=== PATIENT | female | born 1985 | race Caucasian/White ===

== ENCOUNTER 2017-04-18 09:20 | Outpatient (CLI) | payer MEDICAID ==
[2017-04-18] MEDS ORDERED: RINGERS SOLUTION,LACTATED 1,000 ML IV PRN (09:29)
[2017-04-18 09:46] LABS: APPEARANCE,URINE CLOUDY; BILIRUBIN,URINE NEGATIVE (NEGATIVE); GLUCOSE, URINE NEGATIVE (NEGATIVE); KETONES,URINE NEGATIVE (NEGATIVE); LEUKOCYTE ESTERASE,URINE MODERATE (NEGATIVE); NITRITE,URINE NEGATIVE (NEGATIVE); PROTEIN,URINE 30 mg/dL (NEGATIVE)
[2017-04-18 10:06] LABS: URINE BARBITURATES SCREEN NEGATIVE; URINE METHADONE SCREEN NEGATIVE; URINE OPIATES LOW NEGATIVE; URINE PHENCYCLIDINE SCREEN NEGATIVE
--- NOTE | 2017-04-18 10:31 | Non Stress Test Report ---
Non Stress Test Datetime Report Generated by CPN: 04/18/2017 10:31 DEMOGRAPHIC EGA NST: 37.6 INDICATION Indication for Study: Other Indication for Study (NST) Other: IUP 37.6, elevated FHR in office MONITORING Monitor Explained: Monitor Explained; Test Explained; Patient Verbalized Understanding Time on Monitor: 04/18/2017 09:56 Time off Monitor: 04/18/2017 10:19 NST Duration: 23 NST INTERVENTIONS NST Interventions: PO Hydration; IV Fluids Physician Notified NST: Lilliana Andrade CNM BABY A: [id number] BABY A Movement : Present Contraction Frequency : x1 FHR Baseline : 150 Accelerations : 15X15 Decelerations : None Variability : Moderate 6-25bpm NST Review: Meets Criteria for Reactive NST NST Review and Verified By : MARIAMA Dinero Results: Reactive NST REPORT Report Trigger: Send Report
== END 2017-04-18 10:22 | disposition home or self-care (01) ==
LOC: LC 09:20
PROVIDERS: ATTEND Obstetrics & Gynecology
PROC: 4A1HXCZ Monitoring of Products of Conception, Cardiac Rate, External Approach (ICD-10-PCS; principal; 2017-04-18)
DX: O76 Abnormality in fetal heart rate and rhythm complicating labor and delivery (principal); Z3A.37 37 weeks gestation of pregnancy
CPT/HCPCS: 59025; 80307; 81005

== ENCOUNTER 2017-05-01 20:02 | Inpatient (IN) | payer MEDICAID ==
[2017-05-01 20:31] LABS: APPEARANCE,URINE SLIGHTLY-CLOUDY; BILIRUBIN,URINE NEGATIVE (NEGATIVE); COLOR,URINE YELLOW; GLUCOSE, URINE NEGATIVE (NEGATIVE); KETONES,URINE NEGATIVE (NEGATIVE); LEUKOCYTE ESTERASE,URINE TRACE (NEGATIVE); NITRITE,URINE NEGATIVE (NEGATIVE); PROTEIN,URINE 30 mg/dL (NEGATIVE); URINE SPECIFIC GRAVITY 1.013; UROBILINOGEN,URINE NEGATIVE mg/dL (<2.0)
[2017-05-01 20:49] LABS: URINE AMPHETAMINES SCREEN NEGATIVE; URINE BARBITURATES SCREEN NEGATIVE; URINE BENZODIAZEPINES SCREEN NEGATIVE; URINE COCAINE SCREEN NEGATIVE; URINE MARIJUANA (THC) SCREEN NEGATIVE; URINE METHADONE SCREEN NEGATIVE; URINE PHENCYCLIDINE SCREEN NEGATIVE
[2017-05-01] MEDS ORDERED: OXYTOCIN/NORMAL SALINE 20 UNIT/1,000 ML RTUINJ ONE (21:38)
[2017-05-01] MEDS ORDERED: MISOPROSTOL 0.2 MG TABLET ONE (21:38)
[2017-05-01] MEDS ORDERED: LIDOCAINE 1% INJ-PF (10 MG/ML) 30 ML SDV ONE (21:38)
[2017-05-01] MEDS ORDERED: RINGERS SOLUTION,LACTATED 1,000 ML IV PRN (21:41)
[2017-05-01] MEDS ORDERED: FENTANYL/BUPIVACAINE/NS/PF 200 MCG/100 ML RTUINJ EPI PRN (21:42)
[2017-05-01] MEDS ORDERED: EPHEDRINE SULFATE INJ 50 MG/1 ML AMPULE IV PRN (21:42)
[2017-05-01] MEDS ORDERED: DIPHENHYDRAMINE HCL 50 MG/ML VIAL IV PRN (21:42)
[2017-05-01] MEDS ORDERED: EPHEDRINE SULFATE INJ 50 MG/1 ML AMPULE IV ONE (21:42)
[2017-05-01] MEDS ORDERED: BENZOIN/ALOE VERA/STORAX/TOLU TINCTURE 60 ML TP PRN (21:42)
[2017-05-01] MEDS ORDERED: BUPIVACAINE HCL 0.25 % INJ/PF (2.5 MG/1 ML) 30 ML VIAL INFIL ONE (21:42)
[2017-05-01 21:57] LABS: HEMATOCRIT 32.5 % (36.0-47.0); HEMOGLOBIN 11.1 g/dL (12.0-15.5); MEAN CORPUSCULAR HEMOGLOBIN 31.1 pg (27.0-33.4); MEAN CORPUSCULAR HGB CONC 34.2 g/dL (32.0-36.0); MEAN CORPUSCULAR VOLUME 91 fl (80-97); PLATELET COUNT 246 10^3/uL (150-450); RED BLOOD COUNT 3.57 10^6/uL (3.72-5.28); WHITE BLOOD COUNT 23.2 10^3/uL (4.0-10.5)
[2017-05-01 22:13] LABS: ABSOLUTE LYMPHOCYTES# (MANUAL) 4.6 10^3/uL (0.5-4.7); ABSOLUTE MONOCYTES # (MANUAL) 0.2 10^3/uL (0.1-1.4); ABSOLUTE NEUTROPHILS# (MANUAL) 17.4 10^3/uL (1.7-8.2); BAND NEUTROPHILS % (MANUAL) 2 % (3-5); BASOPHILS % (MANUAL) 0 % (0-2); EOSINOPHILS % (MANUAL) 4 % (0-6); LYMPHOCYTES % (MANUAL) 16 % (13-45); METAMYELOCYTES % (MANUAL) 2 % (0); MONOCYTES % (MANUAL) 1 % (3-13); SEGMENTED NEUTROPHILS % (MAN) 71 % (42-78); TOTAL CELLS COUNTED 100
[2017-05-01 22:14] LABS: PLATELET COMMENT ADEQUATE; RBC MORPHOLOGY COMMENT NORMO-CYTIC/CHROMIC
[2017-05-01] MEDS ORDERED: MEASLES,MUMPS&RUBELLA VACC/PF 0.5 ML VIAL SUBCUT PRN (22:57)
[2017-05-01] MEDS ORDERED: ACETAMINOPHEN WITH CODEINE #3 TABLET PO PRN ×2 (22:57)
[2017-05-01] MEDS ORDERED: DIPHENHYDRAMINE HCL 25 MG CAPSULE PO PRN (22:57)
[2017-05-01] MEDS ORDERED: PROMETHAZINE HCL 25 MG SUPP.RECT PR PRN (22:57)
[2017-05-01] MEDS ORDERED: GLYCERIN/WITCH HAZEL LEAF 1 EACH MED..PAD TP PRN (22:57)
[2017-05-01] MEDS ORDERED: NA PHOS,M-B/NA PHOS,DI-BA (ADULT) 133 ML ENEMA PR PRN (22:57)
[2017-05-01] MEDS ORDERED: PROMETHAZINE HCL INJ 25 MG/1 ML VIAL IV PRN (22:57)
[2017-05-01] MEDS ORDERED: OXYTOCIN/NORMAL SALINE 20 UNIT/1,000 ML RTUINJ IV PRN (22:57)
[2017-05-01] MEDS ORDERED: DIBUCAINE 1% OINTMENT 28 GM TP PRN (22:57)
[2017-05-01] MEDS ORDERED: ACETAMINOPHEN 650 MG SUPP.RECT PR PRN (22:57)
[2017-05-01] MEDS ORDERED: MAGNESIUM HYDROXIDE SUSP 30 ML UDCUP PO PRN (22:57)
[2017-05-01] MEDS ORDERED: PSEUDOEPHEDRINE HCL 30 MG TABLET PO PRN (22:57)
[2017-05-01] MEDS ORDERED: BENZOCAINE/MENTHOL AEROSOL SPRAY 56 ML TOP PRN (22:57)
[2017-05-01] MEDS ORDERED: DIPH/PERTUSS(ACELL)/TETANUS VAC/PF 0.5 ML SYR (>=10YO) IM PRN (22:57)
[2017-05-01] MEDS ORDERED: PROMETHAZINE HCL 25 MG TABLET PO PRN (22:57)
[2017-05-01] MEDS ORDERED: ZOLPIDEM TARTRATE 5 MG TABLET PO PRN (22:57)
[2017-05-01] MEDS ORDERED: IBUPROFEN 800 MG TABLET ONE (23:36)
--- NOTE | 2017-05-01 23:48 | Delivery Summary ---
Del Sum A-C Datetime Report Generated by CPN: 05/01/2017 23:47 DELIVERY PERSONNEL DELIVERY PERSONNEL: [id number] Delivery Doctor:: Winnie Perry MD Labor and Delivery Nurse:: Lorraine Gibbons RNsplitter hand Nurse:: Lisa Lowery RN Aligning Inspector/TEXTILE MACHINERY SALES REPRESENTATIVE: Elaine Tan, ST MATERNAL INFORMATION Delivery Anesthesia: None Medications After Delivery: Pitocin Drip 20 Units/1000ml NSS Estimated Blood Loss (ml): 200 Maternal Complications: Precipitous Labor (<3hrs) LABOR SUMMARY EDC: 05/03/2017 00:00 No. Babies in Womb: 1 Attempted: No Labor Anesthesia: None LABOR INFORMATION Reason for Induction: Not Applicable Onset of Labor: 05/01/2017 21:32 Complete Dilatation: 05/01/2017 21:51 Oxytocin: N/A Group B Beta Strep: negative Antibiotics # of Doses: 0 Steroids Given: None Reason Steroids Not Administered: Not Applicable MEMBRANES Membranes Rupture Method: Spontaneous Rupture of Membranes: 05/01/2017 21:51 Length of Rupture (hr): 0.75 Amniotic Fluid Color: Clear Amniotic Fluid Amount: Moderate Amniotic Fluid Odor: Normal STAGES OF LABOR Stage 1 hr: 0 Stage 1 min: 19 Stage 2 hr: 0 Stage 2 min: 45 Stage 3 hr: 0 Stage 3 min: 6 Total Time in Labor hr: 1 Total Time in Labor min: 10 VAGINAL DELIVERY Episiotomy: None Laceration #1: Perineal Laceration Extension #1: First Degree Laceration Repair: No Sponge Count Correct: N/A Sharps Count Correct: N/A CSECTION DELIVERY Primary Indication: N/A Secondary Indication: N/A CSection Incidence: N/A Labor: N/A Elective: N/A CSection Incision: N/A BABY A INFORMATION Delivery Date/Time: 05/01/2017 22:36 Method of Delivery: Vaginal Born in Route : No : N/A Forceps: N/A Vacuum Extraction: N/A Shoulder Dystocia : No PRESENTATION/POSITION BABY A Presentation: Cephalic Cephalic Presentation: Vertex Vertex Position: Occipital Posterior Breech Presentation: N/A PLACENTA INFORMATION BABY A Placenta Delivery Time : 05/01/2017 22:42 Placenta Method of Delivery: Spontaneous Placenta Status: Delivered SCORES BABY A Heart Rate 1 min: >100 bpm Resp Effort 1 min: Good Cry Reflex Irritability 1 min: Cough or Sneeze or Pulls Away Muscle Tone 1 min: Active Motion Color 1 min: Body [place], Extremities Blue Resuscitation Effort 1 min: Tactile Stimulation SCORE 1 MIN: 9 Heart Rate 5 min: >100 bpm Resp Effort 5 min: Good Cry Reflex Irritability 5 min: Cough or Sneeze or Pulls Away Muscle Tone 5 min: Active Motion Color 5 min: Body [place], Extremities Blue Resuscitation Effort 5 min: Tactile Stimulation SCORE 5 MIN: 9 INFORMATION BABY A Gestational Age at Delivery: 39.5 Gestational Status: Full Term- 39- 40.6 Weeks Outcome : Liveborn Condition : Stable Sex: Female IDENTIFICATION BABY A Infant Verification Date/Time: 05/01/2017 22:58 ID Band Number: [id number] Mother's Name Verified: Yes Infant RN Verifying Infant: SCaroline Live, RN _ C. Beverley, RN WEIGHT/LENGTH BABY A Infant Birthweight (gm): 3590 Infant Weight (lb): 7 Weight (oz): 15 Length (in): 19.50 Length (cm): 49.53 CORD INFORMATION BABY A No. Cord Vessels: 3 Nuchal Cord : N/A Cord Blood Taken: Yes-For Storage (Mom's Blood type +) Suction: Mouth; Nose BABY B INFORMATION : N/A SIGNATURES Signature: with User ID: [email or web address]
--- NOTE | 2017-05-02 00:44 | Admission Physical ---
Datetime Report Generated by CPN: 05/02/2017 00:44 CURRENT ADMISSION Chief Complaint: Uterine Contractions; Vaginal Bleeding Indication for Induction: Not Applicable Indication for Induction: Term, Intrauterine ; Active Labor Admit Plan: Admit to Unit; Initiate Labor Protocol ALLERGIES Medication Allergies: No Medication Allergies: No Known Allergies (02/02/2016) Latex: No Latex Allergies OBSTETRICAL HISTORY EDC: 05/03/2017 00:00 : 5 Para: 4 Term: 4 : 0 SAB: 0 IAB: 0 Ectopic: 0 Livin Cesareans: 0 VBACs: 0 Multiple Births: 0 Gestational Diabetes: No Rh Sensitization: No Incompetent Cervix: No JULIANA: No Infertility: No ART Treatment: No Uterine Anomaly: No IUGR: No Hx Previous C/S: No Macrosomia: No Hx Loss/Stillborn: No PIH: No Hx : No Placenta Previa/Abruption: No Depression/PP Depression: No PTL/PROM: No Post Hemorrhage: No Current Procedures: Ultrasound; NST Obstetrical History Comments: G1: 2005 39 weeks G2: 2007 38 weeks G3: 2010 40 weeks G4: 2015 40 weeks G5: 2016 SEE RECORDS Alcohol: No Marijuana : No Cocaine: No Other Illicit Drugs: No Cigarettes: Current Everyday Smoker. 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 Heart Disease: No Hosp/Surgery: Yes Autoimmune Disorder: No Anesthetic Complications: No Kidney Disease: No Abnormal Pap Smear: No Neuro/Epilepsy: No Psychiatric Disorders: No Other Medical Diseases: No Hepatitis/Liver Disease: No Significant Family History: No Varicosities/Phlebitis: No Trauma/Violence : No Thyroid Dysfunction: No Medical History Comments: leep pulmonary issues as a child INFECTIOUS HISTORY Gonorrhea: No Genital Herpes: No Chlamydia: No Tuberculosis: No Syphilis: No Hepatitis: No HIV/AIDS Exposure: No Rash or Viral Illness: No HPV: No PHYSICAL EXAM General: Normal HEENT: Normal Neurologic: Normal Thyroid: Normal Heart: Normal Lungs: Normal Breast: Normal Back: Normal Abdomen: Normal Genitourinary Exam: Normal Extremities: Normal DTRs: Normal Pelvic Type: Adequate Vital Signs: Reviewed; Within Normal Limits VAGINAL EXAM Dilatation: 5 Effacement: 80 Station: -1 MEMBRANES Pooling: Negative Membranes: Bulging Amniotic Fluid Color: Clear FETUS A EGA: 39.5 Monitoring: External US FHR- Baseline: 160 Variability: Moderate 6-25bpm Accelerations: 15X15 Decelerations: None FHR Category: Category I Estimated Weight (gm): 3700 Presentation: Vertex Presentation- Other: OP PLANS FOR LABOR AND DELIVERY Labor and Delivery: None Pain Management: Epidural Feeding Preference: Formula Benefit of Breast Feed Discussed: Yes Circumcision: N/A INFORMED CONSENT Signature: with User ID: [email or web address]
[2017-05-02] MEDS: IBUPROFEN 800 MG TABLET PO SCH ×3 (05:03→21:14)
[2017-05-02 07:43] LABS: HEMATOCRIT 28.4 % (36.0-47.0); HEMOGLOBIN 9.8 g/dL (12.0-15.5); MEAN CORPUSCULAR HEMOGLOBIN 31.5 pg (27.0-33.4); MEAN CORPUSCULAR HGB CONC 34.6 g/dL (32.0-36.0); MEAN CORPUSCULAR VOLUME 91 fl (80-97); PLATELET COUNT 220 10^3/uL (150-450); RED BLOOD COUNT 3.12 10^6/uL (3.72-5.28); WHITE BLOOD COUNT 20.1 10^3/uL (4.0-10.5)
--- NOTE | 2017-05-02 09:45 | PDOC PROGRESS REPORT ---
Subjective-OB Subjective: Post Delivery Day: 31 year old. Denies any needs at this time Doing well, no c/o, fob in room, baby in crib, eating well, voiding, ambulating Physical Exam (OB) Vital Signs: Temp Pulse Resp BP Pulse Ox 98.5 F 48 L 16 103/56 L 98 05/02/17 07:51 05/02/17 07:51 05/02/17 07:51 05/02/17 07:51 05/02/17 07:51 Intake & Output 05/01/17 05/02/17 05/03/17 06:59 06:59 06:59 Weight 74.15 kg - Lochia Lochia Amount: Small 10-25 ml Lochia Color: Rubra/Red - Abdomen Description: Soft, Round Hernia Present: No Fundal Description: Firm, Midline Fundal Height: u/u - u/2 Objective-Diagnostic Laboratory: 05/02/17 07:32 05/01/17 05/01/17 05/01/17 20:13 21:44 21:44 WBC 23.2 H RBC 3.57 L Hgb 11.1 L Hct 32.5 L MCV 91 MCH 31.1 MCHC 34.2 RDW 14.0 Plt Count 246 Seg Neutrophils % Not Reportable Lymphocytes % Not Reportable Monocytes % Not Reportable Eosinophils % Not Reportable Basophils % Not Reportable Absolute Neutrophils Not Reportable Absolute Lymphocytes Not Reportable Absolute Monocytes Not Reportable Absolute Eosinophils Not Reportable Absolute Basophils Not Reportable Urine Color YELLOW Urine Appearance SLIGHTLY-CLOUDY Urine pH 7.0 Ur Specific [place] 1.013 Urine Protein 30 H Urine Glucose (UA) NEGATIVE Urine Ketones NEGATIVE Urine Blood SMALL H Urine Nitrite NEGATIVE Ur Leukocyte Esterase TRACE H Blood Type A POSITIVE Antibody Screen NEGATIVE 05/02/17 07:32 WBC 20.1 H RBC 3.12 L Hgb 9.8 L Hct 28.4 L MCV 91 MCH 31.5 MCHC 34.6 RDW 14.0 Plt Count 220 Seg Neutrophils % Lymphocytes % Monocytes % Eosinophils % Basophils % Absolute Neutrophils Absolute Lymphocytes Absolute Monocytes Absolute Eosinophils Absolute Basophils Urine Color Urine Appearance Urine pH Ur Specific [place] Urine Protein Urine Glucose (UA) Urine Ketones Urine Blood Urine Nitrite Ur Leukocyte Esterase Blood Type Antibody Screen Assessment and Plan(PN) - Assessment and Plan (1) Anemia Qualifiers: Anemia type: iron deficiency Is this a current diagnosis for this admission?: Yes (2) Vacuum extractor delivery, delivered Is this a current diagnosis for this admission?: Yes - Time Spent with Patient Time with patient: Less than 15 minutes Medications reviewed and adjusted accordingly: Yes - Disposition Anticipated Discharge: Home Within: within 24 hours
[2017-05-02] MEDS: SENNOSIDES/DOCUSATE 8.6-50 MG 1 EACH TABLET PO SCH (11:09)
[2017-05-02] MEDS: FAMOTIDINE 20 MG TABLET PO SCH ×2 (11:09→21:15)
[2017-05-02] MEDS: DOCUSATE SODIUM 100 MG CAPSULE PO SCH ×2 (11:10→17:43)
[2017-05-02] MEDS: PRENATAL VITAMIN W DHA CAPSULE PO SCH (11:10)
[2017-05-02] MEDS: FERROUS SULFATE 325 MG TABLET PO SCH ×2 (11:10→17:44)
[2017-05-03] MEDS: IBUPROFEN 800 MG TABLET PO SCH (05:02)
[2017-05-03 08:48] VITALS: BP 114/67
[2017-05-03] MEDS: SENNOSIDES/DOCUSATE 8.6-50 MG 1 EACH TABLET PO SCH (09:02)
[2017-05-03] MEDS: FAMOTIDINE 20 MG TABLET PO SCH (09:03)
[2017-05-03] MEDS: PRENATAL VITAMIN W DHA CAPSULE PO SCH (09:03)
[2017-05-03] MEDS: DOCUSATE SODIUM 100 MG CAPSULE PO SCH (09:03)
[2017-05-03] MEDS: FERROUS SULFATE 325 MG TABLET PO SCH (09:03)
--- NOTE | 2017-05-03 11:33 | PDOC DISCHARGE SUMMARY ---
Final Diagnosis Discharge Date: 05/03/17 - Final Diagnosis (1) Vaginal delivery Is this a current diagnosis for this admission?: Yes (2) Tobacco smoking affecting Is this a current diagnosis for this admission?: Yes (3) Acute blood loss anemia Is this a current diagnosis for this admission?: Yes Discharge Data - Discharge Medication Home Medications: No122/Iron/Folic Acid [ Multi Tablet] 1 tab PO DAILY 12/16/15 Reason(s) for Admission: Onset of Labor Procedures: NST, Ultrasound Intrapartum Procedure(s): Spontaneous Vaginal Delivery Complication(s): Laceration-Perineal Laceration-Degree: 1st - Diagnosis Test Laboratory: Temp Pulse Resp BP Pulse Ox 98.0 F 72 17 114/67 100 05/03/17 08:04 05/03/17 08:04 05/03/17 08:04 05/03/17 08:04 05/03/17 08:04 05/01/17 05/01/17 05/02/17 20:13 21:44 07:32 RBC 3.57 L 3.12 L Hgb 11.1 L 9.8 L Hct 32.5 L 28.4 L Urine Opiates Screen NEGATIVE - Discharge information/Instructions Discharge Activity: Activity As Tolerated, Balance Activity w/Rest, No Lifting Over 10 Pounds, Pelvic Rest, No tub bath Discharge Diet: Regular Disposition: HOME, SELF-CARE Follow up with: [facility] in: 4, Weeks
[2017-05-03 12:30] LABS: HEMATOCRIT 30.8 % (36.0-47.0); HEMOGLOBIN 10.5 g/dL (12.0-15.5); MEAN CORPUSCULAR HEMOGLOBIN 31.3 pg (27.0-33.4); MEAN CORPUSCULAR VOLUME 92 fl (80-97); PLATELET COUNT 277 10^3/uL (150-450); RED BLOOD COUNT 3.34 10^6/uL (3.72-5.28); RED CELL DISTRIBUTION WIDTH 14.2 % (11.5-14.0); WHITE BLOOD COUNT 17.5 10^3/uL (4.0-10.5)
== END 2017-05-03 13:33 | disposition home or self-care (01) | DRG 812 ==
LOC: LC 20:02 → LR 21:39 → 2N 05-02 00:38
PROVIDERS: ADMIT Obstetrics & Gynecology; ATTEND Obstetrics & Gynecology
PROC: 10E0XZZ Delivery of Products of Conception, External Approach (ICD-10-PCS; principal; 2017-05-01)
PROC: 0HQ9XZZ Repair Perineum Skin, External Approach (ICD-10-PCS; 2017-05-01)
PROC: 4A1HXCZ Monitoring of Products of Conception, Cardiac Rate, External Approach (ICD-10-PCS; 2017-05-01)
DX: D62 Acute posthemorrhagic anemia (principal); O99.334 Smoking (tobacco) complicating childbirth; F17.210 Nicotine dependence, cigarettes, uncomplicated; O99.02 Anemia complicating childbirth; O70.0 First degree perineal laceration during delivery; O99.52 Diseases of the respiratory system complicating childbirth; J45.909 Unspecified asthma, uncomplicated; O62.3 Precipitate labor; Z28.21 Immunization not carried out because of patient refusal; Z3A.39 39 weeks gestation of pregnancy; Z37.0 Single live birth
CPT/HCPCS: 36415; 80307; 81005; 85025; 85027; 86592; 86850; 86900; 86901; J2590; J3490

== ENCOUNTER 2017-09-06 10:24 | Emergency (ER) | payer MEDICAID ==
[2017-09-06] MEDS ORDERED: IBUPROFEN 800 MG TABLET PO ONE (11:01)
--- NOTE | 2017-09-06 11:05 | ER Document Report ---
ED Hand/Wrist Injury - General Chief Complaint: Wrist Pain Stated Complaint: WRIST PAIN Time Seen by Provider: 09/06/17 10:43 Mode of Arrival: Ambulatory Information source: Patient Notes: 31-year-old female presents to ED for complaint of pain in her right wrist for about a week. She states that the pain radiates up to her right elbow. She states that it is hard for her to put any weight on her hand or to lift anything with a hand due to the pain. TRAVEL OUTSIDE OF THE [place] IN LAST 30 DAYS: No - HPI Injury to: Wrist Onset: Last week Timing: Still present Quality of pain: Achy, Sharp Severity: Mild Pain Level: 2 - Related Data Allergies/Adverse Reactions: No Known Allergies Allergy (Verified 09/06/17 10:29) Past Medical History - General Information source: Patient - Social History Smoking Status: Current Every Day Smoker Cigarette use (# per day): Yes - 6 or 7 cigarettes a day Chew tobacco use (# tins/day): No Smoking Education Provided: Yes - 4 minutes Frequency of alcohol use: None Drug Abuse: None Occupation: [employer] Lives with: Alone - She lives alone with her children Family History: DM, Malignancy, Thyroid Disfunction. denies: CAD - States coronary aneurysm, COPD, CVA, Hyperlipidemia, Hypertension Patient has suicidal ideation: No Patient has homicidal ideation: No - Past Medical History Cardiac Medical History: Reports: None Pulmonary Medical History: Reports: None EENT Medical History: Reports: None Neurological Medical History: Reports: None Endocrine Medical History: Reports: None Renal/ Medical History: Reports: None Malignancy Medical History: Reports: None GI Medical History: Reports: None Musculoskeltal Medical History: Reports Hx Musculoskeletal Trauma Skin Medical History: Reports None Psychiatric Medical History: Reports: None Traumatic Medical History: Reports: Hx Fractures Infectious Medical History: Reports: None Past Surgical History: Reports: Hx Breast Surgery - cyst removal Lt breast - Immunizations Hx Diphtheria, Pertussis, Tetanus Vaccination: Yes Review of Systems - Review of Systems Constitutional: No symptoms reported EENT: No symptoms reported Cardiovascular: No symptoms reported Respiratory: No symptoms reported Gastrointestinal: No symptoms reported Genitourinary: No symptoms reported Female Genitourinary: No symptoms reported Musculoskeletal: Other - Pain right wrist radiating to elbow Skin: No symptoms reported Hematologic/Lymphatic: No symptoms reported Neurological/Psychological: No symptoms reported -: Yes All other systems reviewed and negative Physical Exam - Vital signs Vitals: Temp Pulse Resp BP Pulse Ox 98.2 F 71 15 100/55 L 97 09/06/17 10:31 09/06/17 10:31 09/06/17 10:31 09/06/17 10:31 09/06/17 10:31 Interpretation: Normal - General General appearance: Appears well, Alert - HEENT Head: Normocephalic, Atraumatic Eyes: Normal Pupils: PERRL - Respiratory Respiratory status: No respiratory distress Chest status: Nontender Breath sounds: Normal Chest palpation: Normal - Cardiovascular Rhythm: Regular Heart sounds: Normal auscultation Murmur: No - Abdominal Inspection: Normal Distension: No distension Bowel sounds: Normal Tenderness: Nontender Organomegaly: No organomegaly - Back Back: Normal, Nontender - Extremities General upper extremity: Normal color, Normal temperature General lower extremity: Normal inspection, Nontender, Normal color, Normal ROM , Normal temperature, Normal weight bearing. No: Varun's sign Wrist: Tender, Limited ROM. No: Abrasion, Axial load of thumb pain, Deformity, Dislocation, Ecchymosis - Due to pain, Instability, Laceration, Navicular tenderness - Neurological Neuro grossly intact: Yes Cognition: Normal Orientation: AAOx4 [place] Coma Scale Eye Opening: Spontaneous [place] Coma Scale Verbal: Oriented [place] Coma Scale Motor: Obeys Commands [place] Coma Scale Total: 15 Speech: Normal Motor strength normal: LUE, RUE, LLE, RLE Sensory: Normal - Psychological Associated symptoms: Normal affect, Normal mood - Skin Skin Temperature: Warm Skin Moisture: Dry Skin Color: Normal Course - Re-evaluation Re-evalutation: 09/06/17 11:04 Patient does not remember a definite injury but she does have pain with any movement of the wrist that radiates up to her arm and elbow. She is able to have faint full range of motion of the hand as long as you hold her wrist still. If you wrist does not he will still she is not able to make a fist. Will get a x-ray of the wrist if this is negative apply cock-up splint and have follow-up with orthopedics. Patient was treated with ibuprofen in the emergency room. 09/06/17 11:41 Joint effusion noted at the wrist no other changes. Patient has been treated with ibuprofen and a cock-up splint. Patient has been instructed to elevate and ice the wrist and to follow-up with orthopedics. - Vital Signs Vital signs: Temp Pulse Resp BP Pulse Ox 98.7 F 82 14 100/55 L 100 09/06/17 11:45 09/06/17 11:45 09/06/17 11:45 09/06/17 10:31 09/06/17 11:45 - Diagnostic Test Radiology reviewed: Image reviewed, Reports reviewed Procedures - Immobilization Right Wrist Time completed: 11:40 Immobilizer type: Cock-up Performed by: MARIAMA Post-Proc Neuro Vasc Exam: Normal Alignment checked and good: Yes Discharge - Discharge Clinical Impression: Right wrist pain Condition: Stable Disposition: HOME, SELF-CARE Additional Instructions: You will treated today for right wrist pain that is gradually developed over the last week and become worse today. Your x-ray is negative for any breaks or dislocations. You have been treated with ibuprofen in the emergency room and instructed on use of a cock-up splint to help with reduce her pain in your wrist. You have been instructed to follow-up with orthopedics. Please call them today to schedule a follow-up appointment. SPLINT PRECAUTIONS: A splint has been placed. This will protect the area while healing begins. Your problem does NOT normally require a cast. It MUST, however, be held still! Keep the splint on ALL THE TIME until instructed to remove it by the doctor. As you begin to use the area, be careful. You shouldn't do anything which causes discomfort -- you may disturb the injury even with the splint in place. After the initial period of rest and elevation, if splint does not prevent pain when you move, come back. You may require placement of a different splint , or a cast. If there is unexpected severe pain, or numbness, discoloration, or swelling beyond the splint, you should return at once. If you feel that the splint has broken or become loose, come back. ICE & ELEVATION: Apply ice packs frequently against the painful area. Many different schedules are recommended, such as "20 minutes on, 20 minutes off" or "one hour ice, two hours rest." If you need to work, you may need to go longer between ice treatments. You should plan to have the area ice packed AT LEAST one- fourth of the time. The ice should be applied over the wrap, tape, or splint, or over a layer of cloth -- not directly against the skin. Some ice bags have a built-in cloth and can be put directly on the skin. Your injured part should be elevated as much as possible over the next 48 hours. Try to keep the injury above the level of the heart. Avoid use of the injured area. Elevation and rest will decrease the swelling. USE OF [id number] IBUPROFEN: Ibuprofen (Advil, Nuprin, Medipren, Motrin IB) is a medication for fever and pain control. In addition, it has anti- inflammatory effects which may be beneficial, especially in the treatment of injuries. It's best to take ibuprofen with food. Persons with ulcer disease or allergy to aspirin should notify their physician of this before taking ibuprofen. Ibuprofen can be given every four to six hours, for a total of four doses daily. Age Pain or fever dose Antiinflammatory dose 6-8 yr 200 mg (1 tab) 200 mg (1 tab) 9-11 yr 200 mg (1 tab) 200-400 mg (1-2 tab) 11-14 yr 200-400 mg (1-2 tab) 400 mg (2 tab) 15-adult 400 mg (2 tab) 600 mg (3 tab) FOLLOW-UP CARE: If you have been referred to a physician for follow-up care, call the physician s office for an appointment as you were instructed or within the next two days. If you experience worsening or a significant change in your symptoms, notify the physician immediately or return to the Emergency Department at any time for re-evaluation. Forms: Smoking Cessation Education, Return to Work Referrals: MANJIT DAVALOS MD [Primary Care Provider] - Follow up as needed
--- NOTE | 2017-09-06 11:30 | RADIOLOGY REPORT (SQ) ---
EXAM DESCRIPTION: WRIST RIGHT 3 VIEWS COMPLETED DATE/TIME: 09/06/2017 11:18 am REASON FOR STUDY: pain with movement COMPARISON: None. NUMBER OF VIEWS: Three views. TECHNIQUE: AP, lateral, and oblique radiographic images acquired of the right wrist. LIMITATIONS: None. FINDINGS: MINERALIZATION: Normal. BONES: No acute fracture or dislocation. No worrisome bone lesions. Normal alignment. SOFT TISSUES: There is a wrist joint effusion with fluid bowing dorsally on the lateral view. No rad iopaque foreign body. No soft tissue gas. OTHER: No other significant finding. IMPRESSION: No acute fracture or malalignment. Wrist joint effusion TECHNICAL DOCUMENTATION: JOB ID: [id number] [employer] All Rights Reserved Reading location - IP/workstation name: [email or web address]
== END 2017-09-06 11:55 | disposition home or self-care (01) ==
LOC: ER 10:24
DX: M25.531 Pain in right wrist (principal); M25.521 Pain in right elbow; F17.210 Nicotine dependence, cigarettes, uncomplicated
CPT/HCPCS: 99283; 73110; L3908; J3490

== ENCOUNTER 2020-01-30 14:27 | Outpatient (CLI) | payer MEDICAID ==
[2020-01-30 15:34] LABS: APPEARANCE,URINE SLIGHTLY-CLOUDY; BILIRUBIN,URINE NEGATIVE (NEGATIVE); COLOR,URINE YELLOW; GLUCOSE, URINE NEGATIVE (NEGATIVE); KETONES,URINE NEGATIVE (NEGATIVE); LEUKOCYTE ESTERASE,URINE TRACE (NEGATIVE); NITRITE,URINE POSITIVE (NEGATIVE); PROTEIN,URINE 30 mg/dL (NEGATIVE)
[2020-01-30 16:01] LABS: URINE AMPHETAMINES SCREEN NEGATIVE; URINE BARBITURATES SCREEN NEGATIVE; URINE BENZODIAZEPINES SCREEN NEGATIVE; URINE COCAINE SCREEN NEGATIVE; URINE MARIJUANA (THC) SCREEN NEGATIVE; URINE METHADONE SCREEN NEGATIVE; URINE PHENCYCLIDINE SCREEN NEGATIVE
== END 2020-01-30 15:58 | disposition left against medical advice (07) ==
LOC: LC 14:27
PROVIDERS: ATTEND Obstetrics & Gynecology Gynecology
DX: O99.89 Other specified diseases and conditions complicating pregnancy, childbirth and the puerperium (principal); O9A.213 Injury, poisoning and certain other consequences of external causes complicating pregnancy, third trimester; M25.562 Pain in left knee; M54.9 Dorsalgia, unspecified; Z3A.33 33 weeks gestation of pregnancy; W01.0XXA Fall on same level from slipping, tripping and stumbling without subsequent striking against object, initial encounter
CPT/HCPCS: 59025; 80307; 81001

== ENCOUNTER 2020-02-28 09:01 | Outpatient (CLI) | payer MEDICAID ==
[2020-02-28] MEDS ORDERED: RINGERS SOLUTION,LACTATED 1,000 ML IV PRN (10:26)
[2020-02-28] MEDS ORDERED: RINGERS SOLUTION,LACTATED 1,000 ML IV ONE (10:26)
--- NOTE | 2020-02-28 11:52 | Non Stress Test Report ---
Non Stress Test Datetime Report Generated by CPN: 02/28/2020 11:52 DEMOGRAPHIC Test Number: 2 EGA NST: 37.2 EGA NST: 33.1 INDICATION Indication for Study (NST) Other: NR in office repeat NST Indication for Study (NST) Other: LC VITAL SIGNS Temperature - NST: 98.3 Pulse - NST: 84 RESP - NST: 16 RESP - NST: 16 NBPSYS NST: 110 NBPSYS NST: 101 NBPDIA NST: 63 NBPDIA NST: 54 MONITORING Monitor Explained: Monitor Explained; Test Explained; Patient Verbalized Understanding Monitor Explained: Monitor Explained; Test Explained; Patient Verbalized Understanding Time on Monitor: 02/28/2020 09:13 Time on Monitor: 01/30/2020 14:47 Time off Monitor: 02/28/2020 11:12 Time off Monitor: 01/30/2020 15:54 NST Duration: 119 NST Duration: 67 NST INTERVENTIONS NST Interventions: PO Hydration; IV Fluids; Reposition Patient NST Interventions: PO Hydration Physician Notified NST: Dr Serna Physician Notified NST: Raymond AGUILAR BABY A: [id number] BABY A Movement : Present Movement : Present Contraction Frequency : irreg Contraction Frequency : Irregular FHR Baseline : 145 FHR Baseline : 140 Accelerations : 15X15 Accelerations : 15X15 Decelerations : None Decelerations : None Variability : Moderate 6-25bpm Variability : Moderate 6-25bpm NST Review: Meets Criteria for Reactive NST NST Review: Meets Criteria for Reactive NST NST Review and Verified By : MARIAMA Chew Results: Reactive NST Results: Reactive NST REPORT Report Trigger: Send Report
== END 2020-02-28 11:33 | disposition home or self-care (01) ==
LOC: LC 09:01
PROVIDERS: ATTEND Student in an Organized Health Care Education/Training Program
DX: O09.513 Supervision of elderly primigravida, third trimester (principal); Z3A.37 37 weeks gestation of pregnancy
CPT/HCPCS: 59025

== ENCOUNTER 2020-03-12 10:47 | Inpatient (IN) | payer MEDICAID ==
--- NOTE | 2020-03-12 13:46 | RADIOLOGY REPORT (SQ) ---
EXAM DESCRIPTION: U/S PROFILE W/O STRESS IMAGES COMPLETED DATE/TIME: 03/12/2020 1:37 pm REASON FOR STUDY: Non reactive NST COMPARISON: None. TECHNIQUE: Limited phillips-scale realtime and static images of the fetus to measure specified parameter s. LIMITATIONS: None. FINDINGS: HEART RATE: 150 beats per minute. LISSETTE: 10.9 cm. MVP: 4.53 cm. BREATHING MOVEMENT: 2 points. MOVEMENT: 2 points. POSTURE AND TONE: 2 points. QUALITATIVE LISSETTE: 2 points. OTHER: No other significant finding. IMPRESSION: BIOPHYSICAL PROFILE: 12/27. Trimester of : Third - 28 weeks to delivery COMMENT: BREATHING MOVEMENTS: 2 POINTS: PRESENT 0 POINTS: ABSENT MOTION: 2 POINTS: PRESENT 0 POINTS: ABSENT TONE: 2 POINTS: PRESENT 0 POINTS: ABSENT AMNIOTIC FLUID VOLUME: 2 POINTS: LARGEST POCKET GREATER THAN 2 CM DEPTH. 0 POINTS: NO POCKET OF 2 CM. TECHNICAL DOCUMENTATION: JOB ID: [id number] 2010 [employer] All Rights Reserved Reading location - IP/workstation name: [email or web address]
[2020-03-12] MEDS ORDERED: RINGERS SOLUTION,LACTATED 1,000 ML IV ONE (14:12)
[2020-03-12] MEDS ORDERED: OXYTOCIN/0.9 % SODIUM CHLORIDE 30 UNIT/500 ML RTUINJ IV PRN ×2 (14:12→19:29)
[2020-03-12 14:45] LABS: HEMATOCRIT 34.5 % (36.0-47.0); HEMOGLOBIN 12.1 g/dL (12.0-15.5); MEAN CORPUSCULAR HEMOGLOBIN 31.5 pg (27.0-33.4); MEAN CORPUSCULAR VOLUME 90 fl (80-97); PLATELET COUNT 306 10^3/uL (150-450); RED BLOOD COUNT 3.83 10^6/uL (3.72-5.28); RED CELL DISTRIBUTION WIDTH 13.6 % (11.5-14.0); WHITE BLOOD COUNT 18.1 10^3/uL (4.0-10.5)
[2020-03-12] MEDS ORDERED: LIDOCAINE 1% INJ-PF (10 MG/ML) 30 ML SDV ONE (14:57)
[2020-03-12] MEDS ORDERED: MISOPROSTOL 0.2 MG TABLET ONE (14:57)
[2020-03-12] MEDS ORDERED: OXYTOCIN/0.9 % SODIUM CHLORIDE 30 UNIT/500 ML RTUINJ ONE (14:57)
[2020-03-12] MEDS ORDERED: OXYTOCIN 10 UNIT/ML VIAL ONE (14:57)
[2020-03-12 15:04] LABS: ABSOLUTE LYMPHOCYTES# (MANUAL) 3.4 10^3/uL (0.5-4.7); ABSOLUTE MONOCYTES # (MANUAL) 0.4 10^3/uL (0.1-1.4); BAND NEUTROPHILS % (MANUAL) 1 % (3-5); BASOPHILS % (MANUAL) 0 % (0-2); EOSINOPHILS % (MANUAL) 1 % (0-6); LYMPHOCYTES % (MANUAL) 19 % (13-45); MONOCYTES % (MANUAL) 2 % (3-13); SEGMENTED NEUTROPHILS % (MAN) 77 % (42-78); TOTAL CELLS COUNTED 100
[2020-03-12 15:05] LABS: PLATELET COMMENT ADEQUATE; RBC MORPHOLOGY COMMENT NORMO-CYTIC/CHROMIC
[2020-03-12] MEDS: RINGERS SOLUTION,LACTATED 1,000 ML IV PRN ×2 (15:06→18:39)
--- NOTE | 2020-03-12 15:18 | Admission Physical ---
Datetime Report Generated by CPN: 03/12/2020 15:17 CURRENT ADMISSION Chief Complaint: Sent from OB Office for Evaluation and Treatment - Please Specify Chief Complaint Other: sent for repeat NST for AMA Indication for Induction: Indicated by Testing Indication for Induction- Other: BPP 8/8 but after reviewing strip, discussed with pt and she agrees to IOL Admit Impression : No Active Labor; Induction of Labor Admit Plan: Admit to Unit; Initiate Labor Induction Protocol ALLERGIES Medication Allergies: No Medication Allergies: No Known Allergies (03/12/2020) Latex: No Latex Allergies Food Allergies: denies Environmental Allergies: denies OBSTETRICAL HISTORY EDC: 03/18/2020 00:00 : 7 Para: 5 Term: 5 : 0 SAB: 1 IAB: 0 Ectopic: 0 Livin Cesareans: 0 VBACs: 0 Multiple Births: 0 Hx Previous C/S: No SEE RECORDS Alcohol: No Marijuana : No Cocaine: No Other Illicit Drugs: No Cigarettes: Current Everyday Smoker. 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 PHYSICAL EXAM General: Normal HEENT: Normal Neurologic: Normal Thyroid: Deferred Heart: Normal Lungs: Normal Breast: Deferred Back: Normal Abdomen: Normal Genitourinary Exam: Normal Extremities: Normal DTRs: Deferred Pelvic Type: Adequate Physical Exam Comments: pelvis proven to 7#15 Vital Signs: Reviewed; Within Normal Limits VAGINAL EXAM Dilatation: 3 Effacement: thick Station: -2 Contraction Comments: qq3-4 mins MEMBRANES Pooling: Negative Membranes: Intact FETUS A EGA: 39.1 Monitoring: External US FHR- Baseline: 135 Variability: Moderate 6-25bpm Accelerations: 15X15 Decelerations: None Estimated Weight (gm): 3600 Presentation: Vertex Presentation- Other: by sono today Admit Comment: sent from office for repeat NST, NST with decels. discussed options with pt and she agrees to IOL today. pitocin started, pt wants epidural before AROM. PLANS FOR LABOR AND DELIVERY Labor and Delivery: None Pain Management: Epidural Feeding Preference: Formula Circumcision: N/A INFORMED CONSENT Assignment: Winnie Perry MD Signature: with User ID: [email or web address] : with User ID: [email or web address]
[2020-03-12] MEDS ORDERED: EPHEDRINE SULFATE INJ 50 MG/1 ML AMPULE ONE (15:35)
[2020-03-12] MEDS ORDERED: FENTANYL/BUPIVACAINE/NS/PF 300 MCG/150 ML RTUINJ EPI ONE (15:36)
[2020-03-12] MEDS ORDERED: ROPIVACAINE HCL 0.2% INJ/PF (2 MG/ML) 20 ML SDV ONE (15:36)
[2020-03-12 17:16] LABS: APPEARANCE,URINE CLEAR; BILIRUBIN,URINE NEGATIVE (NEGATIVE); COLOR,URINE STRAW; GLUCOSE, URINE NEGATIVE (NEGATIVE); KETONES,URINE NEGATIVE (NEGATIVE); LEUKOCYTE ESTERASE,URINE NEGATIVE (NEGATIVE); NITRITE,URINE NEGATIVE (NEGATIVE); PROTEIN,URINE NEGATIVE (NEGATIVE); URINE SPECIFIC GRAVITY 1.004; UROBILINOGEN,URINE NEGATIVE mg/dL (<2.0)
[2020-03-12 17:35] LABS: URINE AMPHETAMINES SCREEN NEGATIVE; URINE BARBITURATES SCREEN NEGATIVE; URINE BENZODIAZEPINES SCREEN NEGATIVE; URINE COCAINE SCREEN NEGATIVE; URINE MARIJUANA (THC) SCREEN NEGATIVE; URINE METHADONE SCREEN NEGATIVE; URINE PHENCYCLIDINE SCREEN NEGATIVE
[2020-03-12] MEDS ORDERED: MAGNESIUM HYDROXIDE SUSP 30 ML UDCUP PO PRN (19:29)
[2020-03-12] MEDS ORDERED: DIPH/PERTUSS(ACELL)/TETANUS VAC/PF 0.5 ML SYR (>=10YO) IM PRN (19:29)
[2020-03-12] MEDS ORDERED: PROMETHAZINE HCL 25 MG TABLET PO PRN (19:29)
[2020-03-12] MEDS ORDERED: PROMETHAZINE HCL 25 MG SUPP.RECT PR PRN (19:29)
[2020-03-12] MEDS ORDERED: ACETAMINOPHEN 325 MG TABLET PO PRN (19:29)
[2020-03-12] MEDS ORDERED: ACETAMINOPHEN 650 MG SUPP.RECT PR PRN (19:29)
[2020-03-12] MEDS ORDERED: DIPHENHYDRAMINE HCL 25 MG CAPSULE PO PRN (19:29)
[2020-03-12] MEDS ORDERED: DIBUCAINE 1% OINTMENT 28 GM TP PRN (19:29)
[2020-03-12] MEDS ORDERED: MEASLES,MUMPS&RUBELLA VACC/PF 0.5 ML VIAL SUBCUT PRN (19:29)
[2020-03-12] MEDS ORDERED: ZOLPIDEM TARTRATE 5 MG TABLET PO PRN (19:29)
[2020-03-12] MEDS ORDERED: NA PHOS,M-B/NA PHOS,DI-BA (ADULT) 133 ML ENEMA PR PRN (19:29)
[2020-03-12] MEDS ORDERED: PSEUDOEPHEDRINE HCL 30 MG TABLET PO PRN (19:29)
[2020-03-12] MEDS ORDERED: ACETAMINOPHEN WITH CODEINE #3 TABLET PO PRN ×2 (19:29)
[2020-03-12] MEDS ORDERED: BENZOCAINE/MENTHOL AEROSOL SPRAY 56 ML TOP PRN (19:29)
[2020-03-12] MEDS ORDERED: GLYCERIN/WITCH HAZEL LEAF 1 EACH MED..WIPE TP PRN (19:29)
[2020-03-12] MEDS ORDERED: PROMETHAZINE HCL INJ 25 MG/1 ML VIAL IV PRN (19:29)
--- NOTE | 2020-03-12 22:12 | Delivery Summary ---
Del Sum A-C Datetime Report Generated by CPN: 03/12/2020 22:12 DELIVERY PERSONNEL DELIVERY PERSONNEL: [id number] Delivery Doctor:: Winnie Perry MD Labor and Delivery Nurse:: Tegan Grant RNassistant women's basketball coach Nurse:: Aleshia Robin, MARIAMAC Advanced Manufacturing Consultant/ROAD DRIVER: Jennifer PantojaST evelyn Advanced Manufacturing Consultant/ROAD DRIVER: Xochitl Lee, AUDIO DIRECTOR MATERNAL INFORMATION Delivery Anesthesia: Epidural Medications After Delivery: Pitocin 30 Units in 500ml NS/D5W Estimated Blood Loss (ml): 100 Delivery QBL: 200 Maternal Complications: None LABOR SUMMARY EDC: 03/18/2020 00:00 No. Babies in Womb: 1 Attempted: No Labor Anesthesia: Epidural LABOR INFORMATION Reason for Induction: Indicated by Testing Onset of Labor: 03/12/2020 16:11 Complete Dilatation: 03/12/2020 19:03 Oxytocin: Induction Group B Beta Strep: Negative Antibiotics # of Doses: 0 Name of Antibiotic Given: n/a Steroids Given: None Reason Steroids Not Administered: Not Applicable MEMBRANES Membranes Rupture Method: Artificial Rupture of Membranes: 03/12/2020 16:11 Length of Rupture (hr): 3.12 Amniotic Fluid Color: Clear Amniotic Fluid Amount: Small STAGES OF LABOR Stage 1 hr: 2 Stage 1 min: 52 Stage 2 hr: 0 Stage 2 min: 15 Stage 3 hr: 0 Stage 3 min: 5 Total Time in Labor hr: 3 Total Time in Labor min: 12 VAGINAL DELIVERY Episiotomy: None Laceration #1: None Laceration Extension #1: N/A Laceration Repair: Not Applicable Sponge Count Correct: N/A Sharps Count Correct: N/A CSECTION DELIVERY Primary Indication: N/A BABY A INFORMATION Infant Delivery Date/Time: 03/12/2020 19:18 Method of Delivery: Vaginal Nurse Controlled Delivery: No Born in Route : No : N/A Forceps: N/A Vacuum Extraction: N/A Shoulder Dystocia : No PRESENTATION/POSITION BABY A Presentation: Cephalic Cephalic Presentation: Vertex Breech Presentation: N/A PLACENTA INFORMATION BABY A Placenta Delivery Time : 03/12/2020 19:23 Placenta Method of Delivery: Spontaneous Placenta Status: Delivered SCORES BABY A Heart Rate 1 min: >100 bpm Resp Effort 1 min: Good Cry Reflex Irritability 1 min: Cough or Sneeze or Pulls Away Muscle Tone 1 min: Active Motion Color 1 min: Body [place], Extremities Blue Resuscitation Effort 1 min: Tactile Stimulation SCORE 1 MIN: 9 Heart Rate 5 min: >100 bpm Resp Effort 5 min: Good Cry Reflex Irritability 5 min: Cough or Sneeze or Pulls Away Muscle Tone 5 min: Active Motion Color 5 min: Completely [place] Resuscitation Effort 5 min: Tactile Stimulation SCORE 5 MIN: 10 INFORMATION BABY A Gestational Age at Delivery: 39.1 Gestational Status: Full Term- 39- 40.6 Weeks Infant Outcome : Liveborn Condition : Stable Sex: Female IDENTIFICATION BABY A Verification Date/Time: 03/12/2020 20:50 ID Band Number: [id number] Mother's Name Verified: Yes Infant RN Verifying Infant: D Bellavance RN/E Jilek RN WEIGHT/LENGTH BABY A Birthweight (gm): 3240 Infant Weight (lb): 7 Weight (oz): 2 Length (in): 19.00 Infant Length (cm): 48.26 CORD INFORMATION BABY A No. Cord Vessels: 3 Nuchal Cord : Around Neck x1, Loose Cord Blood Taken: Yes-For Storage (Mom's Blood type +) Infant Suction: None ASSESSMENT BABY A Complications: Multiple Late Decels; Multiple Variable Decels Physical Findings at Delivery: Within Normal Limits Care By: D Bellavance RNC Transferred To: Remains with Mother BABY B INFORMATION : N/A SIGNATURES Signature: with User ID: [email or web address] : Mona was personally available for consultation and serving as supervising physician for the MLP.
--- NOTE | 2020-03-12 22:12 | Birth Certificate Data ---
Cert Data Datetime Report Generated by CPGayla: 03/12/2020 22:12 CERTIFICATE DATA 47a. Care: Yes (01/30/2020 14:51:Tegan Grant RN) 47b. Date of First Visit: 08/15/2019 00:00 (01/30/2020 14:51:Tegan Grant RN) 47c. Date of Last Visit: 03/12/2020 00:00 (01/30/2020 14:51:Tegan Grant RN) 47d. Number of Visits: 10 (01/30/2020 14:51:Tegan Grant RN) 48a. Number of Prev Live Births: 5 (01/30/2020 14:51:Tegan Grant RN) 48b. Now Livin (01/30/2020 14:51:Saray Alexander RN) 48c. Live Births Now : 0 (01/30/2020 14:51:QS system process) 48e. Losses: 1 (01/30/2020 14:51:Tegan Grant RN) 48f. Date of Last Preg Loss: 10/02/2017 00:00 (01/30/2020 14:51:Tegan Grant RN) RISK FACTORS IN THIS 49a. Diabetes: No (01/30/2020 14:51:Tegan Grant RN) 49b. Hypertension: No (01/30/2020 14:51:Tegan Grant RN) 49c. Previous Births: 0 (01/30/2020 14:51:Saray Alexander RN) 49d. Stillborns: No (01/30/2020 14:51:Tegan Grant RN) 49d. IUGR: No (01/30/2020 14:51:Tegan Grant RN) 49e. Infertility Treatment: No (01/30/2020 14:51:Tegan Grant RN) 49f. Previous Cesareans: 0 (01/30/2020 14:51:Tegan Grant RN) Mother's Height 50b. Height Inches: 65 (01/30/2020 14:42:QS system process) Mother's Weight 51a. Pre- Weight (lbs): 140 (01/30/2020 14:51:Tegan Grant RN) 51b. Weight at Delivery (lbs): 167 (03/12/2020 15:03:QS system process) Infections Present/Treated 53a. Gonorrhea: No (01/30/2020 14:51:Tegan Grant RN) Results this Hospital Visit : Negative (01/30/2020 14:51:Saray Alexander RN) 53b. Syphilis: No (01/30/2020 14:51:Tegan Grant RN) 53c. Chlamydia: No (01/30/2020 14:51:Tegan Grant RN) Results this Hospital Visit: Negative (01/30/2020 14:51:Saray Alexander RN) 53d. Hepatitis B: No (01/30/2020 14:51:Tegan Grant RN) Results this Hospital Visit: Negative (01/30/2020 14:51:Saray Alexander RN) 53e. Hepatitis C: Negative (01/30/2020 14:51:Tegan Grant RN) 53h. Mother Tested for HBsAG: Yes (01/30/2020 14:51:Tegan Grant RN) 53i. Date Tested: 08/15/2019 00:00 (01/30/2020 14:51:Tegan Grant RN) 53j. Test Result: Negative (01/30/2020 14:51:Saray Alexander RN) Cigarette Smoking Cigarette Smoking: Current Everyday Smoker. [id number] (01/30/2020 14:51:Tegan Grant RN) 55a. Packs: 1 (01/30/2020 14:51:Tegan Grant RN) 55b. Packs: 1 (01/30/2020 14:51:Tegan Grant RN) 55c. 2nd Trimester of Preg- Ci (01/30/2020 14:51:Tegan Grant RN) 55d. 3rd Trimester of Preg- Ci (01/30/2020 14:51:eTgan Grant RN) Onset of Labor 56a. PROM >12 Hrs: 3.12 (01/30/2020 14:51:QS system process) 56b. Precipitous Labor <3 Hrs: 3 (01/30/2020 14:51:QS system process) 56c. Prolonged Labor > 20 Hrs: 3 (01/30/2020 14:51:QS system process) 57a. Induction of Labor: Induction (01/30/2020 14:51:Tegan Grant RN) 57c. Non-Vertex Presentation A: Vertex (01/30/2020 14:51:Italia Gurrola RN) 57d. Steroids - Lung Mat: None (01/30/2020 14:51:Tegan Grant RN) 57d. Steroids - Lung Mat: Not Applicable (01/30/2020 14:51:Tegan Grant RN) 57g. Moderate/Heavy Meconium: Clear (03/12/2020 16:11:Tegan Grant RN) 57h. Intolerance of Labor: N/A (01/30/2020 14:51:Italia Gurrola RN) 57i. Epidural/Spinal Anesthesia: Epidural (01/30/2020 14:51:Tegan Grant RN) Method of Delivery 58a. Forceps - Unsuccessful A: N/A (01/30/2020 14:51:Italia Gurrola RN) 58b. Vacuum - Unsuccessful A: N/A (01/30/2020 14:51:Italia Gurrola RN) 58c. Presentation at 58c. Presentation at - A : Vertex (01/30/2020 14:51:Italia Gurrola RN) 58c. Presentation at - A : N/A (01/30/2020 14:51:Italia Gurrola RN) 58c. Presentation at - A : Cephalic (01/30/2020 14:51:Italia Gurrola RN) Final Route and Method of Del 58d. Baby A Route/Delivery: Vaginal (01/30/2020 14:51:Italia Gurrola RN) 58e. Trial of Labor Attempted: No (01/30/2020 14:51:Tegan Grant RN) 58e. Trial of Labor Attempted A: N/A (01/30/2020 14:51:Tegan Grant RN) 58e. Trial of Labor Attempted B: N/A (01/30/2020 14:51:Tegan Grant RN) Maternal Morbidity 59b. 3rd or 4th Degree Lacs: None (01/30/2020 14:51:Tegan Grant RN) Birthweight Baby A: 3240 (01/30/2020 14:51:Swapna Grady RN) 60a. Pounds : 7 (01/30/2020 14:51:QS system process) 60b. Ounces: 2 (01/30/2020 14:51:QS system process) 61. GA at Delivery Baby A: 39.1 (01/30/2020 14:51:Italia Mary Gurrola, RN) : Full Term- 39- 40.6 Weeks (01/30/2020 14:51:QS system process) 62a. 5 Minute Baby A: 10 (01/30/2020 14:51:QS system process)
[2020-03-13] MEDS: IBUPROFEN 800 MG TABLET PO SCH ×4 (02:14→22:30)
[2020-03-13] MEDS: FAMOTIDINE 20 MG TABLET PO SCH ×3 (02:14→22:30)
[2020-03-13 07:59] LABS: HEMATOCRIT 30.6 % (36.0-47.0); HEMOGLOBIN 10.7 g/dL (12.0-15.5); MEAN CORPUSCULAR HEMOGLOBIN 31.6 pg (27.0-33.4); MEAN CORPUSCULAR VOLUME 90 fl (80-97); PLATELET COUNT 256 10^3/uL (150-450); RED BLOOD COUNT 3.39 10^6/uL (3.72-5.28); RED CELL DISTRIBUTION WIDTH 13.9 % (11.5-14.0); WHITE BLOOD COUNT 19.6 10^3/uL (4.0-10.5)
[2020-03-13] MEDS: SENNOSIDES/DOCUSATE 8.6-50 MG 1 EACH TABLET PO SCH (10:21)
[2020-03-13] MEDS: PRENATAL VITAMIN W DHA CAPSULE PO SCH (10:21)
[2020-03-13] MEDS: DOCUSATE SODIUM 100 MG CAPSULE PO SCH ×2 (10:21→18:06)
[2020-03-13] MEDS: FERROUS SULFATE 325 MG TABLET PO SCH ×2 (10:21→18:06)
--- NOTE | 2020-03-13 11:17 | PDOC PROGRESS REPORT ---
Subjective-OB Progress Note for:: 03/13/20 - PP day #1, doing well, UOB, voiding, A+, Rubella Immune, bottlefeeding Physical Exam (OB) Vital Signs: Temp Pulse Resp BP Pulse Ox 98.1 F 69 17 95/50 L 98 03/13/20 07:31 03/13/20 07:31 03/13/20 07:31 03/13/20 07:31 03/13/20 07:31 Intake & Output 03/12/20 03/13/20 03/14/20 06:59 06:59 06:59 Intake Total 444 Output Total 400 Balance 44 Weight 75.7 kg - General General Appearance: Appears well, Alert In distress: None - PIH/Pre-Eclampsia Clonus: Negative Headache: Absent Epigastric Pain: No Visual Changes: No - Maternal Morbidity 59. Maternal Morbidity (serious complications experinced by the mother associated with labor and delivery: None of the above - Lochia Lochia Amount: Scant < 10 ml Lochia Color: Rubra/Red - Abdomen Description: Soft Hernia Present: No Fundal Description: Firm, Midline Fundal Height: u/u - u/2 - Respiratory Respiratory Status: No respiratory distress - Abdominal Distension: No distension Tenderness: Nontender - Genitourinary Genitourinary Note: voiding - Extremities Upper extremity: Normal inspection Lower extremities: Normal inspection - Neurological Cognition: Normal Orientation: AAOx4 - Psychological Associated symptoms: Normal affect, Normal mood - Skin Skin Temperature: Warm Skin Moisture: Dry Objective-Diagnostic Laboratory: 03/13/20 07:25 03/12/20 03/12/20 03/12/20 14:30 14:30 16:15 WBC 18.1 H RBC 3.83 Hgb 12.1 Hct 34.5 L MCV 90 MCH 31.5 MCHC 35.0 RDW 13.6 Plt Count 306 Seg Neutrophils % Not Reportable Urine Color STRAW Urine Appearance CLEAR Urine pH 7.0 Ur Specific [place] 1.004 Urine Protein NEGATIVE Urine Glucose (UA) NEGATIVE Urine Ketones NEGATIVE Urine Blood MODERATE H Urine Nitrite NEGATIVE Ur Leukocyte Esterase NEGATIVE Blood Type A POSITIVE Antibody Screen NEGATIVE 03/13/20 07:25 WBC 19.6 H RBC 3.39 L Hgb 10.7 L Hct 30.6 L MCV 90 MCH 31.6 MCHC 35.0 RDW 13.9 Plt Count 256 Seg Neutrophils % Urine Color Urine Appearance Urine pH Ur Specific [place] Urine Protein Urine Glucose (UA) Urine Ketones Urine Blood Urine Nitrite Ur Leukocyte Esterase Blood Type Antibody Screen Assessment and Plan(PN) - Assessment and Plan (1) Acute blood loss anemia Is this a current diagnosis for this admission?: Yes (2) Tobacco smoking affecting Qualifiers: Trimester: third trimester Qualified Code(s): O99.333 - Smoking (tobacco) complicating , third trimester Is this a current diagnosis for this admission?: Yes (3) Vacuum extractor delivery, delivered Is this a current diagnosis for this admission?: Yes (4) Vaginal delivery Is this a current diagnosis for this admission?: Yes Plan:: Watch WBC level, will repeat CBC in the am. Ambulation encouraged. Routine PP orders - Time Spent with Patient Time with patient: Less than 15 minutes Medications reviewed and adjusted accordingly: Yes - Disposition Anticipated Discharge Disposition: Home, Self Care Anticipated Discharge Timeframe: within 24 hours
[2020-03-14] MEDS: IBUPROFEN 800 MG TABLET PO SCH (05:49)
[2020-03-14 06:07] LABS: HEMATOCRIT 28.6 % (36.0-47.0); HEMOGLOBIN 10.2 g/dL (12.0-15.5); MEAN CORPUSCULAR HEMOGLOBIN 32.4 pg (27.0-33.4); MEAN CORPUSCULAR HGB CONC 35.6 g/dL (32.0-36.0); MEAN CORPUSCULAR VOLUME 91 fl (80-97); PLATELET COUNT 246 10^3/uL (150-450); RED BLOOD COUNT 3.14 10^6/uL (3.72-5.28); RED CELL DISTRIBUTION WIDTH 13.7 % (11.5-14.0)
[2020-03-14 06:40] LABS: ABSOLUTE LYMPHOCYTES# (MANUAL) 2.4 10^3/uL (0.5-4.7); ABSOLUTE MONOCYTES # (MANUAL) 0.1 10^3/uL (0.1-1.4); BASOPHILS % (MANUAL) 1 % (0-2); EOSINOPHILS % (MANUAL) 3 % (0-6); LYMPHOCYTES % (MANUAL) 17 % (13-45); MONOCYTES % (MANUAL) 1 % (3-13); SEGMENTED NEUTROPHILS % (MAN) 78 % (42-78); TOTAL CELLS COUNTED 100
[2020-03-14 06:41] LABS: PLATELET COMMENT ADEQUATE; RBC MORPHOLOGY COMMENT NORMO-CYTIC/CHROMIC
[2020-03-14] MEDS: SENNOSIDES/DOCUSATE 8.6-50 MG 1 EACH TABLET PO SCH (10:35)
[2020-03-14] MEDS: DOCUSATE SODIUM 100 MG CAPSULE PO SCH (10:35)
[2020-03-14] MEDS: FERROUS SULFATE 325 MG TABLET PO SCH (10:35)
[2020-03-14] MEDS: PRENATAL VITAMIN W DHA CAPSULE PO SCH (10:36)
[2020-03-14] MEDS: FAMOTIDINE 20 MG TABLET PO SCH (10:36)
--- NOTE | 2020-03-14 10:40 | PDOC DISCHARGE SUMMARY ---
Impression - Admit/DC Date/PCP Admission Date/Primary Care Provider: 03/12/20 14:10 MANJIT DAVALOS MD Discharge Date: 03/14/20 - PP Day #2, doing well, A+, Rubella immune, , doing well, no complaints, - Discharge Diagnosis (1) Acute blood loss anemia Is this a current diagnosis for this admission?: Yes (2) Tobacco smoking affecting Is this a current diagnosis for this admission?: Yes (3) Vacuum extractor delivery, delivered Is this a current diagnosis for this admission?: Yes (4) Vaginal delivery Is this a current diagnosis for this admission?: Yes - Additional Information Resuscitation Status: Full Code Discharge Diet: As Tolerated, Regular Discharge Activity: Activity As Tolerated, No Lifting Over 10 Pounds, Pelvic Rest Referrals: MANJIT DAVALOS MD [Primary Care Provider] - Prescriptions: Ibuprofen [Motrin 800 mg Tablet] 800 mg PO Q8 #60 tablet Home Medications: Prenat 115/Iron Fum/Folic/Dss [ 19 Tablet] 1 each PO DAILY 01/30/20 Ibuprofen [Motrin 800 mg Tablet] 800 mg PO Q8 #60 tablet 03/14/20 HPI Reason(s) for Admission: Onset of Labor Procedures: Ultrasound Intrapartum Procedure(s): Spontaneous Vaginal Delivery Hospital Course 59. Maternal Morbidity (serious complications experinced by the mother associated with labor and delivery: None of the above Results Laboratory Results: WBC 14.0 10^3/uL (4.0-10.5) H 03/14/20 05:46 RBC 3.14 10^6/uL (3.72-5.28) L 03/14/20 05:46 Hgb 10.2 g/dL (12.0-15.5) L 03/14/20 05:46 Hct 28.6 % (36.0-47.0) L 03/14/20 05:46 MCV 91 fl (80-97) 03/14/20 05:46 MCH 32.4 pg (27.0-33.4) 03/14/20 05:46 MCHC 35.6 g/dL (32.0-36.0) 03/14/20 05:46 RDW 13.7 % (11.5-14.0) 03/14/20 05:46 Plt Count 246 10^3/uL (150-450) 03/14/20 05:46 Lymph % (Auto) Not Reportable 03/14/20 05:46 Bibb % (Auto) Not Reportable 03/14/20 05:46 Eos % (Auto) Not Reportable 03/14/20 05:46 Baso % (Auto) Not Reportable 03/14/20 05:46 Absolute Neuts (auto) Not Reportable 03/14/20 05:46 Absolute Lymphs (auto) Not Reportable 03/14/20 05:46 Absolute Monos (auto) Not Reportable 03/14/20 05:46 Absolute Eos (auto) Not Reportable 03/14/20 05:46 Absolute Basos (auto) Not Reportable 03/14/20 05:46 Total Counted 100 03/14/20 05:46 Seg Neutrophils % Not Reportable 03/14/20 05:46 Seg Neuts % (Manual) 78 % (42-78) 03/14/20 05:46 Band Neutrophils % 1 % (3-5) L 03/12/20 14:30 Lymphocytes % (Manual) 17 % (13-45) 03/14/20 05:46 Monocytes % (Manual) 1 % (3-13) L 03/14/20 05:46 Eosinophils % (Manual) 3 % (0-6) 03/14/20 05:46 Basophils % (Manual) 1 % (0-2) 03/14/20 05:46 Abs Neuts (Manual) 10.9 10^3/uL (1.7-8.2) H 03/14/20 05:46 Abs Lymphs (Manual) 2.4 10^3/uL (0.5-4.7) 03/14/20 05:46 Abs Monocytes (Manual) 0.1 10^3/uL (0.1-1.4) 03/14/20 05:46 Absolute Eos (Manual) 0.4 10^3/uL (0.0-0.6) 03/14/20 05:46 Abs Basophils (Manual) 0.1 10^3/uL (0.0-0.2) 03/14/20 05:46 Platelet Comment ADEQUATE 03/14/20 05:46 RBC Morph Comment NORMO-CYTIC/CHROMIC 03/14/20 05:46 Urine Color STRAW 03/12/20 16:15 Urine Appearance CLEAR 03/12/20 16:15 Urine pH 7.0 (5.0-9.0) 03/12/20 16:15 Ur Specific [place] 1.004 03/12/20 16:15 Urine Protein NEGATIVE mg/dL (NEGATIVE) 03/12/20 16:15 Urine Glucose (UA) NEGATIVE mg/dL (NEGATIVE) 03/12/20 16:15 Urine Ketones NEGATIVE mg/dL (NEGATIVE) 03/12/20 16:15 Urine Blood MODERATE (NEGATIVE) H 03/12/20 16:15 Urine Nitrite NEGATIVE (NEGATIVE) 03/12/20 16:15 Urine Bilirubin NEGATIVE (NEGATIVE) 03/12/20 16:15 Urine Urobilinogen NEGATIVE mg/dL (<2.0) 03/12/20 16:15 Ur Leukocyte Esterase NEGATIVE (NEGATIVE) 03/12/20 16:15 Urine Ascorbic Acid NEGATIVE (NEGATIVE) 03/12/20 16:15 Urine Opiates Screen NEGATIVE 03/12/20 16:15 Urine Methadone Screen NEGATIVE 03/12/20 16:15 Ur Barbiturates Screen NEGATIVE 03/12/20 16:15 Ur Phencyclidine Scrn NEGATIVE 03/12/20 16:15 Ur Amphetamines Screen NEGATIVE 03/12/20 16:15 U Benzodiazepines Scrn NEGATIVE 03/12/20 16:15 Urine Cocaine Screen NEGATIVE 03/12/20 16:15 U Marijuana (THC) Screen NEGATIVE 03/12/20 16:15 RPR NONREACTIVE (NONREACTIVE) 03/12/20 14:30 Blood Type A POSITIVE 03/12/20 14:30 Antibody Screen NEGATIVE 03/12/20 14:30 Impressions: Stress Test 03/12/20 00:00 IMPRESSION: BIOPHYSICAL PROFILE: 12/27. Trimester of : Third - 28 weeks to delivery Plan Plan of Treatment: d/c home, f/up with [facility] in 4 wks for PP check Time Spent: Less than 30 Minutes
[2020-03-14 11:42] VITALS: BP 116/62
== END 2020-03-14 13:38 | disposition home or self-care (01) | DRG 806 ==
LOC: LC 10:47 → LR 14:10 → UNDODISIN 18:14 → 2S 22:25
PROVIDERS: ADMIT Obstetrics & Gynecology; ATTEND Obstetrics & Gynecology
PROC: 10D07Z6 Extraction of Products of Conception, Vacuum, Via Natural or Artificial Opening (ICD-10-PCS; principal; 2020-03-12)
DX: O99.334 Smoking (tobacco) complicating childbirth (principal); D62 Acute posthemorrhagic anemia; Z37.0 Single live birth; O76 Abnormality in fetal heart rate and rhythm complicating labor and delivery; O69.81X0 Labor and delivery complicated by cord around neck, without compression, not applicable or unspecified; F17.210 Nicotine dependence, cigarettes, uncomplicated; Z3A.39 39 weeks gestation of pregnancy; O99.02 Anemia complicating childbirth
CPT/HCPCS: 1967; 36415; 76819; 80307; 81005; 85025; 85027; 86592; 86850; 86900; 86901; 94760; J2590; J2795; J3010; J3490